=== PATIENT | male | born 1975 ===

== ENCOUNTER 2016-09-14 | Emergency (ER) | payer MEDICAID ==
[2016-09-15 14:38] LABS: CHLAMYDIA BD Negative (Negative); N.GONORRHOEAE BD Negative (Negative); SOURCE Urine (())
== END 2016-09-14 01:03 | disposition home or self-care (01) ==
LOC: ED
DX: B37.42 Candidal balanitis (principal); Z79.899 Other long term (current) drug therapy; Z88.6 Allergy status to analgesic agent